=== PATIENT | female | born 1990 | race Caucasian/White ===

== ENCOUNTER 2023-12-04 10:40 | Emergency (ER) | payer OTHER ==
[~2023-12-04] VITALS: Ht 154.9 cm; Wt 114.6 kg
[2023-12-04 10:44] VITALS: PULSE 78; RESP 16; TEMP 98.4
[2023-12-04] MEDS ORDERED: LATUDA40 MG (10:52)
[2023-12-04] MEDS ORDERED: WELLBUTRIN XL300 MG PO (10:52)
== END 2023-12-04 11:28 | disposition home or self-care (01) ==
LOC: FSED 10:42
DX: S46.811A Strain of other muscles, fascia and tendons at shoulder and upper arm level, right arm, initial encounter (principal); X50.9XXA Other and unspecified overexertion or strenuous movements or postures, initial encounter; Y92.89 Other specified places as the place of occurrence of the external cause; N80.9 Endometriosis, unspecified; F31.9 Bipolar disorder, unspecified
CPT/HCPCS: 99282